=== PATIENT | female | born 1985 | race Caucasian/White ===

== ENCOUNTER 2018-10-10 23:54 | Emergency (ER) | payer OTHER ==
[~2018-10-10] VITALS: Ht 162.6 cm; Wt 72.6 kg
[2018-10-11] VITALS: BP_SYST 157
[2018-10-11 01:23] VITALS: BP_SYST 145
== END 2018-10-11 01:22 | disposition home or self-care (01) ==
LOC: SED 23:54
DX: N64.4 Mastodynia (principal); Z88.2 Allergy status to sulfonamides; Z98.51 Tubal ligation status
CPT/HCPCS: 76641; 99284

== ENCOUNTER 2020-02-19 16:42 | Outpatient (CLI) | payer OTHER, SELFPAY ==
--- NOTE | 2020-02-23 14:02 | NUR ---
Patient was notified by [facility] her COVID-19 "Not Detected" results and instructed to follow the recommended preventive measures ([place] [employer]). Patient verbalizes understanding.
== END 2020-02-19 20:13 | disposition home or self-care (01) ==
LOC: SLB 16:42
PROVIDERS: ATTEND Emergency Medicine
DX: Z03.818 Encounter for observation for suspected exposure to other biological agents ruled out (principal)
CPT/HCPCS: C9803; U0003

== ENCOUNTER 2021-03-16 20:07 | Emergency (ER) | payer OTHER, SELFPAY ==
[~2021-03-16] VITALS: Ht 162.6 cm; Wt 74.8 kg
[2021-03-16 20:23] VITALS: BP_SYST 117
[2021-03-16] MEDS ORDERED: AMOX-426 PO (20:36)
[2021-03-16] MEDS ORDERED: IBUP-1969 PO (20:36)
[2021-03-16 20:43] VITALS: BP_SYST 117
== END 2021-03-16 20:43 | disposition home or self-care (01) ==
LOC: SED 20:07
DX: J02.9 Acute pharyngitis, unspecified (principal); Z20.822 Contact with and (suspected) exposure to COVID-19; Z79.899 Other long term (current) drug therapy; Z88.2 Allergy status to sulfonamides
CPT/HCPCS: 99283; C9803; U0003

== ENCOUNTER 2023-02-20 14:18 | Emergency (ER) | payer OTHER ==
[~2023-02-20] VITALS: Ht 162.6 cm; Wt 77.1 kg
[~2023-02-20 14:18] MED LIST: AMOX-426 PO; IBUP-1969 PO
[2023-02-20 14:30] VITALS: BP_SYST 122; PULSE 80; RESP 18; TEMP 97.6; O2SAT 96
--- NOTE | 2023-02-20 14:45 | NUR ---
Patient to ER bed h2 to gown for evaluation. Side rails up.
--- NOTE | 2023-02-20 14:50 | NUR ---
ER at bedside examining patient.
--- NOTE | 2023-02-20 15:05 | NUR ---
PATIENT BIB SELF C/O RIGHT UPPER BACK PAIN X 1 WEEK. PATIENT STATES SHE FEELS THAT SHE "SLEPT WRONG" AND AWOKE ONE MORNING WITH PAIN, TRIED TO STRETCH IT OUT AND WENT TO THE GYM WHICH ONLY MADE IT WORSE. HAS TRIED USING IBUPROFEN 800 MG & ICY HOT TOPICAL WITH LITTLE RELIEF. CURRENTLY RATES PAIN 02/05. NO MED HX. ALLERGY TO SULFA. VSS.
[2023-02-20] MEDS ORDERED: NAPR-1172 PO (15:37)
--- NOTE | 2023-02-20 15:42 | NUR ---
Patient given written and verbal discharge instructions and verbalizes understanding. ER MD discussed with patient the results and treatment provided. Patient in stable condition. ID arm band removed. Rx of NAPROXEN given. Patient educated on pain management and to follow up with PMD. Pain Scale 2. Opportunity for questions provided and answered. Medication side effect fact sheet provided.
[2023-02-21] MEDS ORDERED: CYCL10TA24 PO (11:30)
[2023-02-21] MEDS ORDERED: ACET-2634 PO (11:31)
[2023-02-21] MEDS ORDERED: DICL20GE TP (11:31)
[2023-02-21] MEDS ORDERED: OXYC-128 PO (11:31)
[2023-02-21] MEDS ORDERED: LIDO1ADH22 TP (11:31)
== END 2023-02-20 15:42 | disposition home or self-care (01) ==
LOC: SED 14:18
DX: S23.3XXA Sprain of ligaments of thoracic spine, initial encounter (principal); Z88.2 Allergy status to sulfonamides; Z79.899 Other long term (current) drug therapy; X58.XXXA Exposure to other specified factors, initial encounter; Y93.89 Activity, other specified; Y92.89 Other specified places as the place of occurrence of the external cause; Y99.8 Other external cause status
CPT/HCPCS: 71250-TC; 76376; 99284

== ENCOUNTER 2023-02-21 10:12 | Emergency (ER) | payer OTHER ==
[~2023-02-21] VITALS: Ht 162.6 cm; Wt 77.1 kg
[~2023-02-21 10:12] MED LIST changes: +NAPR-1172 PO
[2023-02-21 10:29] VITALS: BP_SYST 124; PULSE 83; RESP 18; TEMP 98.1; O2SAT 93
--- NOTE | 2023-02-21 10:34 | NUR ---
Patient to [facility] 1 to gown for evaluation. Side rails up.
--- NOTE | 2023-02-21 10:37 | NUR ---
Pt bib self from work Pt is [id number] with upper right scapula pain related to discomfort from pulled muscle occurring several days ago.Pt denies flank pain, denies trauma, denies NVD. Pt is with regular respirations and 7/10 pain to right upper back.
[2023-02-21 10:39] VITALS: BP_SYST 124; PULSE 83; RESP 18; TEMP 98.1; O2SAT 93
[2023-02-21] MEDS ORDERED: KETOROLAC TROMETHAMINE 30 MG VIAL IM ONE (11:00)
--- NOTE | 2023-02-21 11:15 | NUR ---
Pt HCG negative per yeterday ER visit. Pt states no chance of at this time.
--- NOTE | 2023-02-21 11:16 | NUR ---
Pt reaffirms no chance of per tubal ligation.
--- NOTE | 2023-02-21 11:20 | NUR ---
Pt medicated per MD order pain 03/08.
[2023-02-21] MEDS ORDERED: LIDOCAINE PATCH 5% 1 EA TP ONE (11:30)
[2023-02-21] MEDS ORDERED: CYCLOBENZAPRINE HCL 10 MG TABLET (FLEXERIL) PO ONE (11:30)
[2023-02-21] MEDS ORDERED: CYCL10TA24 PO (11:30)
[2023-02-21] MEDS ORDERED: LIDO1ADH22 TP (11:31)
[2023-02-21] MEDS ORDERED: ACET-2634 PO (11:31)
[2023-02-21] MEDS ORDERED: OXYC-128 PO (11:31)
[2023-02-21] MEDS ORDERED: DICL20GE TP (11:31)
--- NOTE | 2023-02-21 11:49 | NUR ---
Patient given written and verbal discharge instructions and verbalizes understanding. ER MD discussed with patient the results and treatment provided. Patient in stable condition. ID arm band removed. IV catheter removed intact and dressing applied, no active bleeding. Rx of tylenol flexeril Voltaren and Lidopro given. Patient educated on pain management and to follow up with PMD. Opportunity for questions provided and answered. Medication side effect fact sheet provided.
== END 2023-02-21 11:49 | disposition home or self-care (01) ==
LOC: SED 10:12
DX: M62.830 Muscle spasm of back (principal); M54.6 Pain in thoracic spine; Z88.2 Allergy status to sulfonamides; Z79.899 Other long term (current) drug therapy
CPT/HCPCS: 99283; 96372; J1885